=== PATIENT | female | born 1955 | race Caucasian/White ===

== ENCOUNTER → 2019-06-19 | Outpatient (CLI) | payer OTHER ==
[~2019-06-19] MED LIST: CALCIUM GUMMIE1 EACH PO; FIRST AID ANT28.4 GM TP; FLONASE 0.05%50 MCG NASAL; HYDROCODONE-AP1 EAC6 PO
== END ==
LOC: NUC 10:14 → EDSTATUS 16:06
DX: Z13.820 Encounter for screening for osteoporosis (principal); M85.89 Other specified disorders of bone density and structure, multiple sites; Z82.62 Family history of osteoporosis